=== PATIENT | female | born 1950 | race Caucasian/White ===

== ENCOUNTER 2016-12-03 09:11 | Inpatient (IN) | payer MEDICARE, MEDICAID ==
--- NOTE | 2016-12-03 09:45 | ED Physician Chart ---
ED Chief Complaint/HPI - Patient Information Date Seen:: 12/03/16 Time Seen:: 09:24 Chief Complaint:: trauma to the head History of Present Illness:: THIS IS A 66 YO FEMALE WHO WAS SENT FROM THE [facility] FOR AN EVALUATION AND TREATMENT OF SEVERAL AREA OF CONTUSION FROM A FALL FROM A WHEELCHAIR. THE PATIENT DID NOT LOOSE CONSCIOUSNESS. THIS FALL OCCURRED JUST PRIOR TO HER ARRIVAL HERE. SHE IS MENTALLY CHALLENGED WITH MULTIPLE CHRONIC MEDICAL PROBLEMS. SHE HAS KYPHOSCOLIOSIS, OBSESSIVE/COMPULSIVE DISORDER, GASTRITIS AND A SEIZURE DISORDER. THE PATIENT WAS ASKED DID SHE HAVE PAIN AND SHE DENIED PAIN AND DID NOT WANT ANY PAIN MEDS. Allergies:: Allergies Allergy/AdvReac Type Severity Reaction Status Date / Time MDX Metronidazole Allergy Verified 09/18/13 17:03 [From Flagyl] Vitals:: Vital Signs - 8 hr 12/03/16 09:20 Temp 97.8 F HR 78 RR 16 BP 149/85 O2 Sat % 96 Historian:: Patient, EMS, Medical Records Review:: Nurse's Note Reviewed, Old Chart Reviewed, Transfer documents Reviewed ED Review of Systems - Review of Systems General/Constitutional: No fever, No chills, No weight loss, No weakness, No diaphoresis, No edema, No loss of appetite, Other (THIS PATIENT IS UNABLE TO GIVE A REVIEW OF SYSTEMS. ) Skin: No skin lesions, No rash, No bruising Head: No headache, No light-headedness Eyes: No loss of vision, No pain, No diplopia ENT: No earache, No nasal drainage, No sore throat, No tinnitus Neck: No neck pain, No swelling, No thyromegaly, No stiffness, No mass noted Cardio Vascular: No chest pain, No palpitations, No PND, No orthopnea, No edema Pulmonary: No SOB, No cough, No sputum, No wheezing GI: No nausea, No vomiting, No diarrhea, No pain, No melena, No hematochezia, No constipation, No hematemesis G/U: No dysuria, No frequency, No hematuria Musculoskeletal: No bone or joint pain, No back pain, No muscle pain Endocrine: No polyuria, No polydipsia Psychiatric: No prior psych history, No depression, No anxiety, No suicidal ideation Hematopoietic: No bruising, No lymphadenopathy Allergic/Immuno: No urticaria, No angioedema Neurological: No syncope, No focal symptoms, No weakness, No paresthesia, No headache, No seizure, No dizziness, No confusion, No vertigo ED Past Medical History - Past Medical History Obtainable: Yes Past Medical History: Seizures, Arthritis, Dementia Family History: None Social History: Non Smoker, No Alcohol, No Drug Use, Care Facility Surgical History: other (RIGHT BREAST REMOVAL, HERNIA REPAIR AND RECTAL SURGERY) Psychiatricy History: Depression, Schizophrenia, Dementia Family Medical History - Family Member Mother History Unknown: Yes ED Physical Exam - Physical Examination General/Constitutional: Awake, Well-developed, well-nourished, Alert, No distress, GCS 15, Non-toxic appearing, Ambulatory Other Head comments:: THERE IS A SMALL HEMATOMA OF THE RIGHT FOREHEAD AREA WITH NO STEP OFF NOTED. Eyes: Lids, conjuctiva normal, PERRL, EOMI Skin: Nl inspection, No rash, No skin lesions, No ecchymosis, Well hydrated, No lymphadenopathy ENMT: External ears, nose nl, Nasal exam nl, Lips, teeth, gums nl Neck: Nontender, Full ROM w/o pain, No JVD, No nuchal rigidity, No bruit, No mass, No stridor Respiratory: Nl effort/Exclusion, Clear to Auscultation, No Wheeze/Rhonchi/Rales Cardio Vascular: RRR, No murmur, gallop, rubs, NL S1 S2 GI: No tenderness/rebounding/guarding, No organomegaly, No hernia, Normal BS's, Nondistended, No mass/bruits, No McBurney tenderness : No CVA tenderness Extremities: Full ROM, normal strength in all extremities, No edema, Normal digits & nails Other Extremities comments:: THERE IS A TENDER AREA WITH A SMALL ABRASION OF THE RIGHT SHOULDER THE RANGE OF MOTION IS NORMAL. THERE IS ALSO A SMALL SUPERFICIAL RIGHT KNEE ABRASION WITH NORMAL ROM. Neuro/Psych: Alert/oriented, DTR's symmetric, Normal sensory exam, Normal motor strength, Judgement/insight normal (POOR MENTATION....SHE STATES THAT SHE IS NOT SURE OF HER AGE), Mood normal, Normal gait, No focal deficits Misc: normal gait, Normal back, No paraspinal tenderness ED Labs/Radiology/EKG Results - Lab Results Results: Abnormal Lab Results 12/03/16 12/03/16 12/03/16 10:08 10:08 10:08 WBC 7.5 RBC 4.41 Hgb 13.5 Hct 41.2 MCV 93.6 MCH 30.6 MCHC Differential 32.7 RDW 13.0 Plt Count 248 MPV 8.5 Neutrophils % 63.3 Lymphocytes % 21.5 Monocytes % 11.9 H Eosinophils % 2.2 Basophils % 1.1 Sodium 137 Potassium 3.8 Chloride 103 Carbon Dioxide 31.6 H Anion Gap 6.2 L BUN 31 H Creatinine 0.7 Est GFR ( Amer) > 60.0 Est GFR (Non-Af Amer) > 60.0 BUN/Creatinine Ratio 44.3 Glucose 94 Calcium 9.3 Total Bilirubin 0.3 AST 58 H ALT 33 Alkaline Phosphatase 61 Troponin I 0.02 Total Protein 6.4 Albumin 3.5 L Globulin 2.9 Albumin/Globulin Ratio 1.2 Valproic Acid 12/03/16 10:08 WBC RBC Hgb Hct MCV MCH MCHC Differential RDW Plt Count MPV Neutrophils % Lymphocytes % Monocytes % Eosinophils % Basophils % Sodium Potassium Chloride Carbon Dioxide Anion Gap BUN Creatinine Est GFR ( Amer) Est GFR (Non-Af Amer) BUN/Creatinine Ratio Glucose Calcium Total Bilirubin AST ALT Alkaline Phosphatase Troponin I Total Protein Albumin Globulin Albumin/Globulin Ratio Valproic Acid 88.8 - Radiology Results Results: X-RAY OF THE SKULL = NEG FOR FX X-RAY OF THE RIGHT KNEE = NO FX X-RAY OF THE RIGHT SHOULDER = FX OF THE DISTAL CLAVICLE. ED Assessment - Assessment General Assessment: MULTIPLE CONTUSIONS AND ABRASIONS. FRACTURED RIGHT DISTAL CLAVICLE ED Septic Shock - . Is Septic Shock (SBP<90, OR Lactate>4 mmol\L) present?: No - <6hrs of presentation: Vital Signs: Vital Signs - 8 hr 12/03/16 09:20 Temp 97.8 F HR 78 RR 16 BP 149/85 O2 Sat % 96 ED Reassessment (Disposition) - Reassessment Reassessment Condition:: Unchanged - Diagnosis Diagnosis:: CONTUSION OF THE HEAD CONTUSION AND FRACTURE OF THE RIGHT CLAVICLE CONTUSION OF THE RIGHT KNEE - Aftercare/Follow up Instructions Aftercare/Follow-Up Instructions:: Counseled pt regarding lab results/diagnosis & need follow up, Refer to Discharge Instructions, Counseled pt & family regarding lab results/diagnosis & need follow up - Patient Disposition Discharge/Transfer:: Acute Care w/in this hosp Admitting Medical Physician:: Sukhjinder Farris Condition at Disposition:: Stable
[2016-12-03 10:19] LABS: % BASOPHILS 1.1 % (0.0-2.0); % EOSINOPHILS 2.2 % (0.0-5.0); % LYMPHOCYTES 21.5 % (20.0-50.0); % MONOCYTES 11.9 % (2.0-10.0); % NEUTROPHILS 63.3 % (40.0-80.0); HEMATOCRIT 41.2 % (35.0-45.0); HEMOGLOBIN 13.5 gm/dL (11.7-16.1); MEAN CELL VOLUME 93.6 fl (81-100); MEAN CORPUSCULAR HEMOGLOBIN 30.6 pg (27.0-31.0); MEAN CORPUSCULAR HGB CONC 32.7 pg (28.0-36.0); MEAN PLATELET VOLUME 8.5 fl; NEUTROPHILE ABSOLUTE 4.7 Th/cmm (1.8-8.0); PLATELET COUNT 248 Th/cmm (150-400); RED BLOOD COUNT 4.41 Mil/cmm (3.80-5.20); WHITE BLOOD COUNT 7.5 Th/cmm (4.8-10.8)
[2016-12-03 10:36] LABS: ALB/GLOB RATIO 1.2 (1.0-1.8); ALKALINE PHOSPHATASE 61 U/L (34-104); ANION GAP 6.2 (7.0-16.0); BILIRUBIN,TOTAL 0.3 mg/dL (0.3-1.0); BUN - UREA NITROGEN 31 mg/dL (7-25); BUN/CREATININE RATIO 44.3; CALCIUM SERUM 9.3 mg/dL (8.6-10.3); CARBON DIOXIDE 31.6 mEq/L (21.0-31.0); CHLORIDE 103 mEq/L (98-107); CREATININE - SERUM 0.7 mg/dL (0.6-1.2); GLUCOSE 94 mg/dL (70-105); POTASSIUM SERUM 3.8 mEq/L (3.5-5.1); SGOT 58 U/L (13-39); SGPT/ALT 33 U/L (7-52); SODIUM SERUM 137 mEq/L (136-145)
--- NOTE | 2016-12-03 11:10 | Diagnostic Imaging Report ---
Right shoulder 3 views Indication: Trauma Comparison: none Findings: There is a displaced fracture of the distal right clavicle. Mild to moderate degenerative changes of the shoulder are noted. No evidence of glenohumeral dislocation. Mild soft tissue swelling of the supraclavicular region is noted. Impression: Displaced fracture involving the right distal clavicle. Clinical correlation is recommended. Degenerative changes.. In the setting of trauma, if clinical symptoms persist and there is continued concern for an occult fracture, follow up exams in 5-7 days is suggested.
--- NOTE | 2016-12-03 11:11 | Diagnostic Imaging Report ---
Right knee 3 views Indication: Trauma Comparison: none Findings: There is minimal narrowing of the medial knee compartment. No evidence of an acute fracture or dislocation. No evidence of a joint effusion. Osteopenia is suspected. Impression: No evidence of an acute fracture. Mild narrowing of the medial knee compartment Osteopenia is suspected. In the setting of trauma, if clinical symptoms persist and there is continued concern for an occult fracture, follow up exams in 5-7 days is suggested.
--- NOTE | 2016-12-03 11:13 | Diagnostic Imaging Report ---
Skull series limited Indication: Trauma Comparison: none Findings: There is a lucency seen along the right calvarial region.. There may have been soft tissue injury of the superior scalp. The orbital floors are grossly intact. Impression: Lucency seen along the right calvarial region. Findings probably represents a suture line. Please correlate with clinical findings and point tenderness in this region. A nondisplaced fracture is considered less likely. If indicated CT of the head may also be obtained for further assessment. Probable soft tissue injury of the superior scalp. In the setting of trauma, if clinical symptoms persist and there is continued concern for an occult fracture, follow up exams in 5-7 days is suggested.
[2016-12-03] MEDS ORDERED: Fleet Enema 135 mL RC PRN (13:05)
[2016-12-03] MEDS ORDERED: Magnesium Hydroxide (MOM) 30 mL UDC PO PRN (13:05)
[2016-12-03] MEDS ORDERED: Ipratropium Neb 0.5 mg/2.5 mL UD IH PRN (13:08)
[2016-12-03] MEDS ORDERED: Maalox 30 mL Cup PO PRN (13:08)
[2016-12-03] MEDS ORDERED: Albuterol Nebulizer 2.5mg/3mL HHN PRN (13:08)
[2016-12-03] MEDS ORDERED: PROTEIN HYDROLYS PO SCH (14:00)
[2016-12-03] MEDS ORDERED: AMINO ACIDS PO SCH (14:00)
[2016-12-03] MEDS: D5-0.45NS 1,000 ML IV SCH (14:36)
[2016-12-03] MEDS: Dextromethorphan/Quinidine 20mg/10mg Cap PO SCH (16:45)
[2016-12-03] MEDS ORDERED: VTE Chemical Prophylaxis Screen/Admission MC PRN (17:11)
--- NOTE | 2016-12-03 20:33 | History & Physical ---
ADMIT DATE: 12/03/2016 CHIEF COMPLAINT: Status post fall, may have passed out. HISTORY OF PRESENT ILLNESS: This is a 66-year-old female with history of serial seizure, mental retardation, dementia, severe debilitation, gastritis, history of breast tumor status post resection, hernia repair, rectal surgery was admitted for episode of falling. While being transported, the patient was not answering for several seconds. The patient was transferred to the ER with a big bump on the right side of the head. The patient was also noted to have a fracture in the right clavicle. PAST MEDICAL HISTORY: As mentioned in history of present illness. PAST SURGICAL HISTORY: As mentioned above. ALLERGIES: METRONIDAZOLE. MEDICATIONS: ____, vitamin D3, Nuedexta, Depakote, Colace, lactobacillus, ____, olanzapine, omeprazole, sertraline, and Metamucil. FAMILY HISTORY: Noncontributory. SOCIAL HISTORY: The patient lives [place]. The patient requiring 24-hour total care. REVIEW OF SYSTEMS: This is limited secondary to the patient's current mental status. We will try to obtain more detailed review of system at a later date. There is a relative, Valeria Huitron, number [phone]. There is a rehabilitation caseworker, April Beck, number [phone]. We will also try to get information from nursing staff at [facility] [phone] as from Dr. Rueda who normally follows the patient. PHYSICAL EXAMINATION: VITAL SIGNS: Blood pressure 149/85, respirations 16, pulse 78, temperature is 97. GENERAL: Elderly female. MUSCULOSKELETAL: Positive ecchymosis on the right forehead, bruise on the right torso and upper extremity and lower extremity. NECK: Supple. No mass. LUNGS: Equal breath sounds, otherwise clear to auscultation. HEART: Regular rate and rhythm without appreciable murmur. ABDOMEN: Soft, globular. EXTREMITIES Positive excoriation. NEUROLOGIC: Limited. LABORATORY DATA: WBC 7.5, hemoglobin 13, platelets 248. Sodium 137, potassium 3.8, BUN 31, creatinine 0.7, blood sugar was 94, AST 58. Albumin 3.5. ASSESSMENT AND PLAN: Left clavicle fracture; head contusion, status post fall; dehydration; renal insufficiency; ____; seizure; gastritis; dementia; mental retardation. We will continue the patient on IV hydration. We will refer the patient to wound care. We will also refer the patient to Orthopedics. We will look for any signs or symptoms of infection. We will continue wound care. We will continue to monitor the patient closely. JOB# [id number]
--- NOTE | 2016-12-03 23:00 | General Progress Note ---
Subjective - Review of Systems Service Date: 12/03/16 Subjective: Fell today; pain right shoulder, right knee and bumped head. Objective - Results Result Diagrams: 12/03/16 10:08 12/03/16 10:08 Recent Labs: Laboratory Last Values WBC 7.5 Th/cmm (4.8-10.8) 12/03/16 10:08 RBC 4.41 Mil/cmm (3.80-5.20) 12/03/16 10:08 Hgb 13.5 gm/dL (11.7-16.1) 12/03/16 10:08 Hct 41.2 % (35.0-45.0) 12/03/16 10:08 MCV 93.6 fl (81-100) 12/03/16 10:08 MCH 30.6 pg (27.0-31.0) 12/03/16 10:08 MCHC Differential 32.7 pg (28.0-36.0) 12/03/16 10:08 RDW 13.0 % (11.5-20.0) 12/03/16 10:08 Plt Count 248 Th/cmm (150-400) 12/03/16 10:08 MPV 8.5 fl 12/03/16 10:08 Neutrophils % 63.3 % (40.0-80.0) 12/03/16 10:08 Lymphocytes % 21.5 % (20.0-50.0) 12/03/16 10:08 Monocytes % 11.9 % (2.0-10.0) H 12/03/16 10:08 Eosinophils % 2.2 % (0.0-5.0) 12/03/16 10:08 Basophils % 1.1 % (0.0-2.0) 12/03/16 10:08 Sodium 137 mEq/L (136-145) 12/03/16 10:08 Potassium 3.8 mEq/L (3.5-5.1) 12/03/16 10:08 Chloride 103 mEq/L (98-107) 12/03/16 10:08 Carbon Dioxide 31.6 mEq/L (21.0-31.0) H 12/03/16 10:08 Anion Gap 6.2 (7.0-16.0) L 12/03/16 10:08 BUN 31 mg/dL (7-25) H 12/03/16 10:08 Creatinine 0.7 mg/dL (0.6-1.2) 12/03/16 10:08 Est GFR ( Amer) > 60.0 ml/min (>90) 12/03/16 10:08 Est GFR (Non-Af Amer) > 60.0 ml/min 12/03/16 10:08 BUN/Creatinine Ratio 44.3 12/03/16 10:08 Glucose 94 mg/dL (70-105) 12/03/16 10:08 Calcium 9.3 mg/dL (8.6-10.3) 12/03/16 10:08 Total Bilirubin 0.3 mg/dL (0.3-1.0) 12/03/16 10:08 AST 58 U/L (13-39) H 12/03/16 10:08 ALT 33 U/L (7-52) 12/03/16 10:08 Alkaline Phosphatase 61 U/L (34-104) 12/03/16 10:08 Troponin I 0.02 ng/mL (0.01-0.05) 12/03/16 10:08 Total Protein 6.4 gm/dL (6.0-8.3) 12/03/16 10:08 Albumin 3.5 gm/dL (3.7-5.3) L 12/03/16 10:08 Globulin 2.9 gm/dL 12/03/16 10:08 Albumin/Globulin Ratio 1.2 (1.0-1.8) 12/03/16 10:08 Valproic Acid 88.8 ug/mL (50.0-100.0) 12/03/16 10:08 - Physical Exam Vitals and I&O: Vital Signs Temp 98.2 F 12/03/16 20:00 Pulse 92 12/03/16 20:00 Resp 17 12/03/16 20:00 BP 122/76 12/03/16 20:00 Pulse Ox 98 12/03/16 20:00 Intake & Output 12/03/16 12/03/16 12/04/16 06:59 18:59 06:59 Weight (lbs) 70.307 kg Active Medications: Current Medications Acetaminophen (Tylenol) 650 mg PO Q4H PRN PRN Reason: Pain Or Fever above 101 Stop: 02/01/17 13:07 Al Hydrox/Mg Hydrox/Simethicone (Maalox) 30 ml PO Q6H PRN PRN Reason: Dyspepsia Stop: 02/01/17 13:07 Albuterol Sulfate (Albuterol 2.5mg/3ml Neb Ud) 2.5 mg HHN Q2HRT PRN PRN Reason: Shortness of Breath or Wheeze Stop: 02/01/17 13:07 Bisacodyl (Dulcolax 10 Mg Supp) 10 mg RC DAILY PRN PRN Reason: CONSTIPATION; IF MOM INEFFECTI Stop: 02/01/17 13:04 Calcium Carbonate (Os-Jean Carlos) [address] [facility] Stop: 02/02/17 08:59 Cholecalciferol (Vitamin D3) 1,[address] [facility] Stop: 02/02/17 08:59 Dextromethorphan/Quinidine (Nuedexta 20mg-10mg) [address] [facility] Stop: 02/01/17 16:59 Last Admin: 12/03/16 16:45 Dose: 1 cap Divalproex Sodium (Depakote Dr) 500 mg PO BID [facility] PRN Reason: Protocol Stop: 02/01/17 16:59 Last Admin: 12/03/16 16:45 Dose: 500 mg Docusate Sodium (Colace) [address] [facility] Stop: 02/02/17 08:59 Dextrose/Sodium Chloride (D5-0.45ns) 1,000 mls @ 80 mls/hr IV .[id number] [facility] Stop: 02/01/17 13:14 Last Admin: 12/03/16 14:36 Dose: 80 mls/hr Ipratropium Empire (Atrovent Neb 0.5mg/2.5ml) 0.5 mg IH Q2HRT PRN PRN Reason: Shortness of Breath or Wheeze Stop: 02/01/17 13:07 Lactobacillus Rhamnosus (Culturelle) [address] [facility] Stop: 02/02/17 08:59 Magnesium Hydroxide (Milk Of Magnesia) 30 ml PO Q72H PRN PRN Reason: Constipation Stop: 02/01/17 13:04 Miscellaneous (Vte Chemical Prophylaxis Screen/ Admission) 1 ea [facility] PRN PRN PRN Reason: PROTOCOL Stop: 02/01/17 17:10 Modafinil (Provigil) 100 mg PO BID [facility] PRN Reason: Protocol Stop: 02/01/17 16:59 Last Admin: 12/03/16 16:44 Dose: 100 mg Olanzapine (Zyprexa) 15 mg PO HS [facility] PRN Reason: Protocol Stop: 02/01/17 20:59 Last Admin: 12/03/16 20:48 Dose: Not Given Ondansetron HCl (Zofran) 4 mg IV Q8H PRN PRN Reason: Nausea / Vomiting Stop: 02/01/17 13:07 Pantoprazole Sodium (Protonix) 40 mg PO DAILY [facility] Stop: 02/02/17 08:59 Psyllium Hydrophilic Mucilloid (Metamucil) [address] [facility] Stop: 02/02/17 08:59 Sertraline HCl (Zoloft) 100 mg PO DAILY [facility] PRN Reason: Protocol Stop: 02/02/17 08:59 Sodium Phosphate (Fleet Enema) 135 ml RC Q72H PRN PRN Reason: IF DULCOLAX INEFFECTIVE Stop: 02/01/17 13:04 Other physical findings: Tender and swollen right shoulder Xrays show fracture of outer end of clavicle wth slight diaplacement Right knee films show osteoarthritis - Procedures Procedures: Procedures Procedure Code Date ABDOMINAL PROCTOPEXY 48.75 12/12/01 C.A.T. SCAN OF HEAD 87.03 11/18/99 CLOSURE OF SPLIT WOUND 35630 12/12/01 CLOSURE SKIN & SUBCUTANEOUS NEC 86.59 10/18/14 COLONOSCOPY 45.23 09/18/13 CORRECT RECTAL PROLAPSE 76835 12/12/01 CT HEAD/BRAIN W/O DYE 47698 11/18/99 DIAGNOSTIC COLONOSCOPY 04400 09/18/13 DIAGNOSTIC SIGMOIDOSCOPY 35263 04/14/01 ENDOSCOPIC BIOPSY OF RECTUM 48.24 03/27/01 HEMORRHOIDECTOMY 49.46 04/14/01 INJECT/INFUSE NEC 99.29 10/18/14 REMOVE IN/EX HEM GROUPS 2+ 99400 04/14/01 RIGID PROCTOSIGMOIDOSCOPY 48.23 04/14/01 RPR F/E/E/N/L/M 2.5 CM/< 47992 10/18/14 RPR F/E/E/N/L/M 2.6-5.0 [place] [address]805 09/18/13 RPR S/N/AX/GEN/TRNK2.6-7.5CM 26117 05/13/01 SIGMOIDOSCOPY AND BIOPSY 10715 03/27/01 TETANUS TOXOID ADMINIST 99.38 09/18/13 Assessment/Plan - Problem List Patient Problems: All Active Problems Fracture of clavicle, acromial end, closed (Acute) S42.033A FALL FROM WHEEL CHAIR; HEAD ARM TRAUMA (Acute) Laceration of forehead (Acute) S01.81XA Falls (Chronic) W19.XXXA - Assessment Assessment: Fracture right clavicle Arthritis right knee - Plan Plan: Consult dictated Sling to right arm. Light range of motion as tolerated. Ice & analgesic medication,as needed. X-ray right clavicle 2 - 3 weeks. This fracture should heal in 6 - 8 weeks and not need surgery.
--- NOTE | 2016-12-04 00:50 | Consultation ---
DATE OF CONSULTATION: 12/03/2016 ORTHOPEDIC SURGERY CONSULTATION HISTORY OF PRESENT ILLNESS: The patient is a 66-year-old lady admitted to the [facility] on 12/03/2016 following a fall, wherein she injured her head, right shoulder and right knee. X-rays were taken via the Emergency Room and a fracture was found. I was called in Orthopedic consultation regarding this fracture. The patient is not able to give meaningful answers to questions about her present injury or past history. A review of the available records indicates she fell from her wheelchair while being loaded into a van today, following which she complained of head and right shoulder pain. She is a resident of a ____. PAST MEDICAL HISTORY: The chart indicates diagnoses of intellectual disability and kyphoscoliosis, status post surgery for prolapsed rectum, depression, osteoporosis, status post hernia repair, status post right breast mastectomy for cancer 12/2005, obsessive compulsive disorder, gastritis, endometrial hyperplasia, peripheral vascular disease, diverticulosis, hemorrhoids, colon polyps, psychosis and insomnia. PHYSICAL EXAMINATION: GENERAL: The patient was examined in her hospital room at [facility]. MUSCULOSKELETAL: Right shoulder and outer clavicle area showed bruising and there is tenderness and slight swelling. Movement is painful and therefore not fully tested. There is no gross instability or malalignment. Neurovascular function of both upper extremities normal. X-RAYS: Reviewed images in the PACS, 3 views right clavicle. There is a fracture of the very distal lateral end of the clavicle with slight displacement. Right knee, 3 views medial compartment narrowing with generalized osteoarthritis changes. ORTHOPEDIC IMPRESSION: 1.Fracture, right clavicle. 2.Arthritis, right knee. RECOMMENDATIONS: The patient can be treated with a sling and light activities, ice and analgesics can be afforded as needed. This fracture should heal in 6-8 weeks and not require surgery. Follow up x-ray in 3 weeks is recommended. Thank you for this interesting referral. JOB# [id number]
[2016-12-04] MEDS: D5-0.45NS 1,000 ML IV SCH ×2 (07:02→22:59)
[2016-12-04] MEDS: Dextromethorphan/Quinidine 20mg/10mg Cap PO SCH ×2 (08:48→16:50)
[2016-12-04] MEDS: Lactobacillus Rhamnosus 10 Billion CFU Capsule PO SCH (08:49)
[2016-12-04] MEDS: Pantoprazole 40 mg EC Tab PO SCH (08:58)
[2016-12-04] MEDS: Multivitamin w/ Minerals Tab PO SCH (08:59)
--- NOTE | 2016-12-04 11:47 | Internal Medicine Prog Note ---
Internal Medicine Subjective - Subjective Service Date: 12/04/16 Patient seen and examined:: with staff Patient is:: awake, verbal Patient Complaints of:: other (pain) Per staff patient has:: tolerating meds Internal Medicine Objective - Results Result Diagrams: 12/03/16 10:08 12/03/16 10:08 Recent Labs: Laboratory Last Values WBC 7.5 Th/cmm (4.8-10.8) 12/03/16 10:08 RBC 4.41 Mil/cmm (3.80-5.20) 12/03/16 10:08 Hgb 13.5 gm/dL (11.7-16.1) 12/03/16 10:08 Hct 41.2 % (35.0-45.0) 12/03/16 10:08 MCV 93.6 fl (81-100) 12/03/16 10:08 MCH 30.6 pg (27.0-31.0) 12/03/16 10:08 MCHC Differential 32.7 pg (28.0-36.0) 12/03/16 10:08 RDW 13.0 % (11.5-20.0) 12/03/16 10:08 Plt Count 248 Th/cmm (150-400) 12/03/16 10:08 MPV 8.5 fl 12/03/16 10:08 Neutrophils % 63.3 % (40.0-80.0) 12/03/16 10:08 Lymphocytes % 21.5 % (20.0-50.0) 12/03/16 10:08 Monocytes % 11.9 % (2.0-10.0) H 12/03/16 10:08 Eosinophils % 2.2 % (0.0-5.0) 12/03/16 10:08 Basophils % 1.1 % (0.0-2.0) 12/03/16 10:08 Sodium 137 mEq/L (136-145) 12/03/16 10:08 Potassium 3.8 mEq/L (3.5-5.1) 12/03/16 10:08 Chloride 103 mEq/L (98-107) 12/03/16 10:08 Carbon Dioxide 31.6 mEq/L (21.0-31.0) H 12/03/16 10:08 Anion Gap 6.2 (7.0-16.0) L 12/03/16 10:08 BUN 31 mg/dL (7-25) H 12/03/16 10:08 Creatinine 0.7 mg/dL (0.6-1.2) 12/03/16 10:08 Est GFR ( Amer) > 60.0 ml/min (>90) 12/03/16 10:08 Est GFR (Non-Af Amer) > 60.0 ml/min 12/03/16 10:08 BUN/Creatinine Ratio 44.3 12/03/16 10:08 Glucose 94 mg/dL (70-105) 12/03/16 10:08 Calcium 9.3 mg/dL (8.6-10.3) 12/03/16 10:08 Total Bilirubin 0.3 mg/dL (0.3-1.0) 12/03/16 10:08 AST 58 U/L (13-39) H 12/03/16 10:08 ALT 33 U/L (7-52) 12/03/16 10:08 Alkaline Phosphatase 61 U/L (34-104) 12/03/16 10:08 Troponin I 0.02 ng/mL (0.01-0.05) 12/03/16 10:08 Total Protein 6.4 gm/dL (6.0-8.3) 12/03/16 10:08 Albumin 3.5 gm/dL (3.7-5.3) L 12/03/16 10:08 Globulin 2.9 gm/dL 12/03/16 10:08 Albumin/Globulin Ratio 1.2 (1.0-1.8) 12/03/16 10:08 Valproic Acid 88.8 ug/mL (50.0-100.0) 12/03/16 10:08 - Physical Exam Vitals and I&O: Vital Signs Temp 98.4 F 12/04/16 04:00 Pulse 86 12/04/16 04:00 Resp 18 12/04/16 04:00 BP 113/74 12/04/16 04:00 Pulse Ox 97 12/04/16 04:00 Intake & Output 12/03/16 12/04/16 12/04/16 18:59 06:59 18:59 Intake Total 1050 Balance 1050 Weight (lbs) 155 lb 155 lb Intake: Intake, IV Amount 1000 D5-0.45NS 1,000 ml @ 80 1000 mls/hr IV .[id number] [facility] Rx #:[id number] Oral 50 Other: # Voids 3 # Bowel Movements 155 Active Medications: Current Medications Acetaminophen (Tylenol) 650 mg PO Q4H PRN PRN Reason: Pain Or Fever above 101 Stop: 02/01/17 13:07 Al Hydrox/Mg Hydrox/Simethicone (Maalox) 30 ml PO Q6H PRN PRN Reason: Dyspepsia Stop: 02/01/17 13:07 Albuterol Sulfate (Albuterol 2.5mg/3ml Neb Ud) 2.5 mg HHN Q2HRT PRN PRN Reason: Shortness of Breath or Wheeze Stop: 02/01/17 13:07 Bisacodyl (Dulcolax 10 Mg Supp) 10 mg RC DAILY PRN PRN Reason: CONSTIPATION; IF MOM INEFFECTI Stop: 02/01/17 13:04 Calcium Carbonate (Os-Jean Carlos) 500 mg PO DAILY [facility] Stop: 02/02/17 08:59 Last Admin: 12/04/16 08:49 Dose: 500 mg Cholecalciferol (Vitamin D3) 1,000 iu PO DAILY [facility] Stop: 02/02/17 08:59 Last Admin: 12/04/16 08:49 Dose: 1,000 iu Dextromethorphan/Quinidine (Nuedexta 20mg-10mg) 1 cap PO BID [facility] Stop: 02/01/17 16:59 Last Admin: 12/04/16 08:48 Dose: 1 cap Divalproex Sodium (Depakote Dr) 500 mg PO BID [facility] PRN Reason: Protocol Stop: 02/01/17 16:59 Last Admin: 12/04/16 08:49 Dose: 500 mg Docusate Sodium (Colace) 250 mg PO DAILY [facility] Stop: 02/02/17 08:59 Last Admin: 12/04/16 08:48 Dose: 250 mg Dextrose/Sodium Chloride (D5-0.45ns) 1,000 mls @ 80 mls/hr IV .[id number] [facility] Stop: 02/01/17 13:14 Last Admin: 12/04/16 07:02 Dose: 80 mls/hr Ipratropium [place] (Atrovent Neb 0.5mg/2.5ml) 0.5 mg IH Q2HRT PRN PRN Reason: Shortness of Breath or Wheeze Stop: 02/01/17 13:07 Lactobacillus Rhamnosus (Culturelle) 1 each PO DAILY [facility] Stop: 02/02/17 08:59 Last Admin: 12/04/16 08:49 Dose: 1 each Magnesium Hydroxide (Milk Of Magnesia) 30 ml PO Q72H PRN PRN Reason: Constipation Stop: 02/01/17 13:04 Miscellaneous (Vte Chemical Prophylaxis Screen/ Admission) 1 ea [facility] PRN PRN PRN Reason: PROTOCOL Stop: 02/01/17 17:10 Modafinil (Provigil) 100 mg PO BID [facility] PRN Reason: Protocol Stop: 02/01/17 16:59 Last Admin: 12/04/16 08:49 Dose: 100 mg Olanzapine (Zyprexa) 15 mg PO HS [facility] PRN Reason: Protocol Stop: 02/01/17 20:59 Last Admin: 12/03/16 20:48 Dose: Not Given Ondansetron HCl (Zofran) 4 mg IV Q8H PRN PRN Reason: Nausea / Vomiting Stop: 02/01/17 13:07 Pantoprazole Sodium (Protonix) 40 mg PO DAILY [facility] Stop: 02/02/17 08:59 Last Admin: 12/04/16 08:58 Dose: 40 mg Psyllium Hydrophilic Mucilloid (Metamucil) 1 pkt PO DAILY [facility] Stop: 02/02/17 08:59 Last Admin: 12/04/16 08:58 Dose: 1 pkt Sertraline HCl (Zoloft) 100 mg PO DAILY [facility] PRN Reason: Protocol Stop: 02/02/17 08:59 Last Admin: 12/04/16 08:58 Dose: 100 mg Sodium Phosphate (Fleet Enema) 135 ml RC Q72H PRN PRN Reason: IF DULCOLAX INEFFECTIVE Stop: 02/01/17 13:04 General: weak, alert HEENT: NC/AT, PERRLA Cardiovascular: RRR, without murmur Abdomen: soft, non-tender, non-distended Extremities: excoriation Neurological: alert - Procedures Procedures: Procedures Procedure Code Date ABDOMINAL PROCTOPEXY 48.75 12/12/01 C.A.T. SCAN OF HEAD 87.03 11/18/99 CLOSURE OF SPLIT WOUND 58452 12/12/01 CLOSURE SKIN & SUBCUTANEOUS NEC 86.59 10/18/14 COLONOSCOPY 45.23 09/18/13 CORRECT RECTAL PROLAPSE 67688 12/12/01 CT HEAD/BRAIN W/O DYE 69871 11/18/99 DIAGNOSTIC COLONOSCOPY 37860 09/18/13 DIAGNOSTIC SIGMOIDOSCOPY 97570 04/14/01 ENDOSCOPIC BIOPSY OF RECTUM 48.24 03/27/01 HEMORRHOIDECTOMY 49.46 04/14/01 INJECT/INFUSE NEC 99.29 10/18/14 REMOVE IN/EX HEM GROUPS 2+ 43581 04/14/01 RIGID PROCTOSIGMOIDOSCOPY 48.23 04/14/01 RPR F/E/E/N/L/M 2.5 CM/< 88508 10/18/14 RPR F/E/E/N/L/M 2.6-5.0 CM 12050 09/18/13 RPR S/N/AX/GEN/TRNK2.6-7.5CM 47935 05/13/01 SIGMOIDOSCOPY AND BIOPSY 57835 03/27/01 TETANUS TOXOID ADMINIST 99.38 09/18/13 Internal Medicine Assmt/Plan - Assessment Assessment: left clavicle fx head contusion s/p fall dehydration renal insufficiency seizure gastritis dementia MR - Plan Plan: fall precautions pain mgmt ivf for hydration am labs continue current plan of care
[2016-12-05 06:08] LABS: HEMATOCRIT 38.6 % (35.0-45.0); HEMOGLOBIN 12.9 gm/dL (11.7-16.1); MEAN CELL VOLUME 92.4 fl (81-100); MEAN CORPUSCULAR HEMOGLOBIN 30.8 pg (27.0-31.0); MEAN CORPUSCULAR HGB CONC 33.4 pg (28.0-36.0); MEAN PLATELET VOLUME 8.9 fl; PLATELET COUNT 230 Th/cmm (150-400); RED BLOOD COUNT 4.18 Mil/cmm (3.80-5.20); RED CELL DISTRIBUTION WIDTH 12.8 % (11.5-20.0); WHITE BLOOD COUNT 7.2 Th/cmm (4.8-10.8)
[2016-12-05 06:36] LABS: ANION GAP 6.5 (7.0-16.0); BUN - UREA NITROGEN 9 mg/dL (7-25); CALCIUM SERUM 8.7 mg/dL (8.6-10.3); CARBON DIOXIDE 30.4 mEq/L (21.0-31.0); CHLORIDE 106 mEq/L (98-107); CREATININE - SERUM 0.5 mg/dL (0.6-1.2); GLUCOSE 110 mg/dL (70-105); POTASSIUM SERUM 3.9 mEq/L (3.5-5.1); SODIUM SERUM 139 mEq/L (136-145)
[2016-12-05 09:35] LABS: BAND NEUTROPHILE 1 % (0-10); EOSINOPHIL 3 % (0-5); NEUTROPHILS 57 % (40-80); TOTAL CELLS COUNTED 100
[2016-12-05] MEDS: Dextromethorphan/Quinidine 20mg/10mg Cap PO SCH ×2 (09:41→17:35)
[2016-12-05] MEDS: Lactobacillus Rhamnosus 10 Billion CFU Capsule PO SCH (09:41)
[2016-12-05] MEDS: Multivitamin w/ Minerals Tab PO SCH (09:50)
[2016-12-05] MEDS: D5-0.45NS 1,000 ML IV SCH (09:55)
--- NOTE | 2016-12-05 10:54 | Internal Medicine Prog Note ---
Internal Medicine Subjective - Subjective Service Date: 12/05/16 (dc summary [id number]) Patient is:: awake, verbal Patient Complaints of:: other (pain) Per staff patient has:: tolerating meds Internal Medicine Objective - Results Result Diagrams: 12/05/16 05:45 12/05/16 05:45 Recent Labs: Laboratory Last Values WBC 7.2 Th/cmm (4.8-10.8) 12/05/16 05:45 RBC 4.18 Mil/cmm (3.80-5.20) 12/05/16 05:45 Hgb 12.9 gm/dL (11.7-16.1) 12/05/16 05:45 Hct 38.6 % (35.0-45.0) 12/05/16 05:45 MCV 92.4 fl (81-100) 12/05/16 05:45 MCH 30.8 pg (27.0-31.0) 12/05/16 05:45 MCHC Differential 33.4 pg (28.0-36.0) 12/05/16 05:45 RDW 12.8 % (11.5-20.0) 12/05/16 05:45 Plt Count 230 Th/cmm (150-400) 12/05/16 05:45 MPV 8.9 fl 12/05/16 05:45 Neutrophils % 63.3 % (40.0-80.0) 12/03/16 10:08 Band Neutrophils % 1 % (0-10) 12/05/16 05:45 Lymphocytes % 21.5 % (20.0-50.0) 12/03/16 10:08 Monocytes % 11.9 % (2.0-10.0) H 12/03/16 10:08 Eosinophils % 2.2 % (0.0-5.0) 12/03/16 10:08 Basophils % 1.1 % (0.0-2.0) 12/03/16 10:08 Neutrophils (Manual) 57 % (40-80) 12/05/16 05:45 Lymphocytes 30 % (20-50) 12/05/16 05:45 Monocytes 9 % (2-10) 12/05/16 05:45 Eosinophils 3 % (0-5) 12/05/16 05:45 Sodium 139 mEq/L (136-145) 12/05/16 05:45 Potassium 3.9 mEq/L (3.5-5.1) 12/05/16 05:45 Chloride 106 mEq/L (98-107) 12/05/16 05:45 Carbon Dioxide 30.4 mEq/L (21.0-31.0) 12/05/16 05:45 Anion Gap 6.5 (7.0-16.0) L 12/05/16 05:45 BUN 9 mg/dL (7-25) 12/05/16 05:45 Creatinine 0.5 mg/dL (0.6-1.2) L 12/05/16 05:45 Est GFR ( Amer) > 60.0 ml/min (>90) 12/05/16 05:45 Est GFR (Non-Af Amer) > 60.0 ml/min 12/05/16 05:45 BUN/Creatinine Ratio 18.0 12/05/16 05:45 Glucose 110 mg/dL (70-105) H 12/05/16 05:45 Calcium 8.7 mg/dL (8.6-10.3) 12/05/16 05:45 Total Bilirubin 0.3 mg/dL (0.3-1.0) 12/03/16 10:08 AST 58 U/L (13-39) H 12/03/16 10:08 ALT 33 U/L (7-52) 12/03/16 10:08 Alkaline Phosphatase 61 U/L (34-104) 12/03/16 10:08 Troponin I 0.02 ng/mL (0.01-0.05) 12/03/16 10:08 Total Protein 6.4 gm/dL (6.0-8.3) 12/03/16 10:08 Albumin 3.5 gm/dL (3.7-5.3) L 12/03/16 10:08 Globulin 2.9 gm/dL 12/03/16 10:08 Albumin/Globulin Ratio 1.2 (1.0-1.8) 12/03/16 10:08 Valproic Acid 88.8 ug/mL (50.0-100.0) 12/03/16 10:08 - Physical Exam Vitals and I&O: Vital Signs Temp 97.2 F 12/05/16 08:00 Pulse 91 12/05/16 08:00 Resp 18 12/05/16 08:00 BP 124/78 12/05/16 08:00 Pulse Ox 92 12/05/16 08:00 Intake & Output 12/04/16 12/05/16 12/05/16 18:59 06:59 18:59 Intake Total 500 1674.667 300 Balance 500 1674.667 300 Weight (lbs) 155 lb 153 lb Intake: Intake, IV Amount 1574.667 300 D5-0.45NS 1,000 ml @ 80 1574.667 300 mls/hr IV .[id number] [facility] Rx #:[id number] Oral 500 100 Other: # Voids 3 2 # Bowel Movements 1 0 Active Medications: Current Medications Acetaminophen (Tylenol) 650 mg PO Q4H PRN PRN Reason: Pain Or Fever above 101 Stop: 02/01/17 13:07 Al Hydrox/Mg Hydrox/Simethicone (Maalox) 30 ml PO Q6H PRN PRN Reason: Dyspepsia Stop: 02/01/17 13:07 Albuterol Sulfate (Albuterol 2.5mg/3ml Neb Ud) 2.5 mg HHN Q2HRT PRN PRN Reason: Shortness of Breath or Wheeze Stop: 02/01/17 13:07 Bisacodyl (Dulcolax 10 Mg Supp) 10 mg RC DAILY PRN PRN Reason: CONSTIPATION; IF MOM INEFFECTI Stop: 02/01/17 13:04 Calcium Carbonate (Os-Jean Carlos) 500 mg PO DAILY [facility] Stop: 02/02/17 08:59 Last Admin: 12/05/16 09:41 Dose: 500 mg Cholecalciferol (Vitamin D3) 1,000 iu PO DAILY [facility] Stop: 02/02/17 08:59 Last Admin: 12/05/16 09:41 Dose: 1,000 iu Dextromethorphan/Quinidine (Nuedexta 20mg-10mg) 1 cap PO BID [facility] Stop: 02/01/17 16:59 Last Admin: 12/05/16 09:41 Dose: 1 cap Divalproex Sodium (Depakote Dr) 500 mg PO BID [facility] PRN Reason: Protocol Stop: 02/01/17 16:59 Last Admin: 12/05/16 09:41 Dose: 500 mg Docusate Sodium (Colace) 250 mg PO DAILY [facility] Stop: 02/02/17 08:59 Last Admin: 12/05/16 09:41 Dose: 250 mg Dextrose/Sodium Chloride (D5-0.45ns) 1,000 mls @ 80 mls/hr IV .[id number] [facility] Stop: 02/01/17 13:14 Last Admin: 12/05/16 09:55 Dose: 80 mls/hr Ipratropium [place] (Atrovent Neb 0.5mg/2.5ml) 0.5 mg IH Q2HRT PRN PRN Reason: Shortness of Breath or Wheeze Stop: 02/01/17 13:07 Lactobacillus Rhamnosus (Culturelle) 1 each PO DAILY [facility] Stop: 02/02/17 08:59 Last Admin: 12/05/16 09:41 Dose: 1 each Magnesium Hydroxide (Milk Of Magnesia) 30 ml PO Q72H PRN PRN Reason: Constipation Stop: 02/01/17 13:04 Miscellaneous (Vte Chemical Prophylaxis Screen/ Admission) 1 ea PRN PRN PRN Reason: PROTOCOL Stop: 02/01/17 17:10 Modafinil (Provigil) 100 mg PO BID [facility] PRN Reason: Protocol Stop: 02/01/17 16:59 Last Admin: 12/05/16 09:41 Dose: 100 mg Olanzapine (Zyprexa) 15 mg PO HS [facility] PRN Reason: Protocol Stop: 02/01/17 20:59 Last Admin: 12/04/16 21:36 Dose: 15 mg Ondansetron HCl (Zofran) 4 mg IV Q8H PRN PRN Reason: Nausea / Vomiting Stop: 02/01/17 13:07 Pantoprazole Sodium (Protonix) 40 mg PO DAILY [facility] Stop: 02/02/17 08:59 Last Admin: 12/04/16 08:58 Dose: 40 mg Psyllium Hydrophilic Mucilloid (Metamucil) 1 pkt PO DAILY [facility] Stop: 02/02/17 08:59 Last Admin: 12/05/16 09:50 Dose: 1 pkt Sertraline HCl (Zoloft) 100 mg PO DAILY [facility] PRN Reason: Protocol Stop: 02/02/17 08:59 Last Admin: 12/05/16 09:41 Dose: 100 mg Sodium Phosphate (Fleet Enema) 135 ml RC Q72H PRN PRN Reason: IF DULCOLAX INEFFECTIVE Stop: 02/01/17 13:04 General: weak, alert HEENT: NC/AT, PERRLA Cardiovascular: RRR, without murmur Abdomen: soft, non-tender, non-distended Extremities: excoriation Neurological: alert - Procedures Procedures: Procedures Procedure Code Date ABDOMINAL PROCTOPEXY 48.75 12/12/01 C.A.T. SCAN OF HEAD 87.03 11/18/99 CLOSURE OF SPLIT WOUND 71730 12/12/01 CLOSURE SKIN & SUBCUTANEOUS NEC 86.59 10/18/14 COLONOSCOPY 45.23 09/18/13 CORRECT RECTAL PROLAPSE 55367 12/12/01 CT HEAD/BRAIN W/O DYE 23930 11/18/99 DIAGNOSTIC COLONOSCOPY 66263 09/18/13 DIAGNOSTIC SIGMOIDOSCOPY 03404 04/14/01 ENDOSCOPIC BIOPSY OF RECTUM 48.24 03/27/01 HEMORRHOIDECTOMY 49.46 04/14/01 INJECT/INFUSE NEC 99.29 10/18/14 REMOVE IN/EX HEM GROUPS 2+ 50337 04/14/01 RIGID PROCTOSIGMOIDOSCOPY 48.23 04/14/01 RPR F/E/E/N/L/M 2.5 CM/< 79027 10/18/14 RPR F/E/E/N/L/M 2.6-5.0 CM 53659 09/18/13 RPR S/N/AX/GEN/TRNK2.6-7.5CM 39685 05/13/01 SIGMOIDOSCOPY AND BIOPSY 81635 03/27/01 TETANUS TOXOID ADMINIST 99.38 09/18/13 Internal Medicine Assmt/Plan - Assessment Assessment: left clavicle fx head contusion s/p fall dehydration renal insufficiency seizure gastritis dementia MR - Plan Plan: fall precautions pain mgmt ivf for hydration am labs continue current plan of care
[2016-12-05] MEDS: Pantoprazole 40 mg EC Tab PO SCH (14:40)
--- NOTE | 2016-12-05 23:42 | Discharge Summary ---
DATE OF DISCHARGE: 12/05/[address] Sukhjinder Farris. DISCHARGE DIAGNOSES: Left clavicle fracture; head contusion; status post fall; dehydration, resolved; renal insufficiency; seizure; gastritis; dementia; and myocardial infarction. HISTORY OF PRESENT ILLNESS: This is a 66-year-old female who is a resident at [facility] who was brought here to [facility] for episode of falling. The patient was noted to have a right clavicle fracture. For this reason, the patient is admitted for further evaluation. PHYSICAL EXAMINATION: GENERAL: The patient is well developed, well nourished, in no distress. VITAL SIGNS: Stable. HEENT: Head is normocephalic and atraumatic. NECK: Supple. No masses. LUNGS: Clear. CARDIOVASCULAR: Regular rate and rhythm. ABDOMEN: Soft, nontender. During the hospital stay, the patient was admitted to the telemetry unit. The patient had a consultation with Dr. Hernández. His plan of care for the patient is to be treated with the sling and light activities, ice, and analgesics and states that this fracture should heal in 6-8 weeks and does not require any surgeries and the patient to follow up x-ray in 3 weeks as recommended. For this reason, the patient is stable for discharge. CONDITION UPON DISCHARGE: Fair. DISPOSITION: [facility]. JOB# [id number]
== END 2016-12-05 19:30 | disposition home or self-care (01) | DRG 562 ==
LOC: ER 09:11 → MSI 12:31
PROVIDERS: ADMIT Internal Medicine; ATTEND Internal Medicine
DX: S42.031A Displaced fracture of lateral end of right clavicle, initial encounter for closed fracture (principal); I21.3 ST elevation (STEMI) myocardial infarction of unspecified site; F03.90 Unspecified dementia, unspecified severity, without behavioral disturbance, psychotic disturbance, mood disturbance, and anxiety; M41.9 Scoliosis, unspecified; S00.93XA Contusion of unspecified part of head, initial encounter; I34.0 Nonrheumatic mitral (valve) insufficiency; E03.9 Hypothyroidism, unspecified; N28.9 Disorder of kidney and ureter, unspecified; G40.909 Epilepsy, unspecified, not intractable, without status epilepticus; K29.70 Gastritis, unspecified, without bleeding; F79 Unspecified intellectual disabilities; F42.9 Obsessive-compulsive disorder, unspecified; F20.9 Schizophrenia, unspecified; S80.01XA Contusion of right knee, initial encounter; W05.0XXA Fall from non-moving wheelchair, initial encounter; E86.0 Dehydration; M17.11 Unilateral primary osteoarthritis, right knee; M81.0 Age-related osteoporosis without current pathological fracture; I73.9 Peripheral vascular disease, unspecified; F32.9 Major depressive disorder, single episode, unspecified; Z90.11 Acquired absence of right breast and nipple; Z85.3 Personal history of malignant neoplasm of breast; Y93.89 Activity, other specified; Y92.89 Other specified places as the place of occurrence of the external cause; Y99.8 Other external cause status; Z88.8 Allergy status to other drugs, medicaments and biological substances
CPT/HCPCS: 36415-UA; 70250-TC; 73030-TC-RT; 73562-TC-RT; 80048-TC; 80053-TC; 80164-TC; 84484-TC; 85007-TC; 85025-TC; 85027-TC; 94760; Z7610